=== PATIENT | male | born 1970 | race Two or more races ===

== ENCOUNTER 2018-06-10 17:33 | Emergency (ER) | payer OTHER ==
[~2018-06-10] VITALS: Ht 180.3 cm; Wt 102.1 kg
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
[2018-06-10] MEDS ORDERED: Methocarbamol 500mg tab ORAL ONE (18:15)
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
--- NOTE | 2018-06-10 18:22 | NUR ---
ED Nurse Note: patient went down for xray
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
[2018-06-10 19:02] VITALS: BP 128/82
--- NOTE | 2018-06-10 19:16 | NUR ---
HAND-OFF: Report given to Charlotte Houston RN . Patient is stable.
[2018-06-10] MEDS ORDERED: LIDOCAINE700 M1 TP (19:25)
[2018-06-10] MEDS ORDERED: ROBAXIN500 MG PO (19:25)
[2018-06-10] MEDS ORDERED: IBUPROFEN600 MG ORAL (19:25)
[2018-06-10] MEDS ORDERED: AUGMENTIN 875-1 EAC1 ORAL (19:25)
[2018-06-10 19:33] VITALS: BP 128/82
--- NOTE | 2018-06-10 19:34 | NUR ---
ER DISCHARGE NOTE: Patient is cleared to be discharged per ERMD, pt is aox4, on room air, with stable vital signs. pt was given dc and prescription instructions, pt was able to verbalize understanding, pt id band removed . pt is able to ambulate with steady gait. pt took all belongings.
--- NOTE | 2018-06-11 10:31 | Diagnostic Imaging Report ---
Indication: Neck pain. Technique: Continuous helical imaging of the cervical spine was obtained transaxially from the skull base to the upper thoracic spine. 2-D coronal and sagittal reformatted images were obtained. Automatic Exposure Control was utilized. Total Dose length Product (DLP): 2045.[address] Dose Index Volume (CTDIvol): 70.38,24.36 mGy Comparison: None Findings: There is no evidence of an acute fracture or malalignment. Atlantoaxial alignment appears normal. Height and configuration of the vertebral bodies and intervertebral discs are within normal limits. Uncovertebral joints and facets are unremarkable. There is no soft tissue swelling. Impression: Negative cervical spine CT The CT scanner at [facility] is accredited by the [employer] and the scans are performed using dose optimization techniques as appropriate to a performed exam including Automatic Exposure control.
--- NOTE | 2018-06-11 10:32 | Diagnostic Imaging Report ---
Indication: Headache Technique: Contiguous 5 mm thick transaxial imaging of the head obtained in a Siemens Sensation [address] scanner. Soft tissue and bone windows generated. Automatic Exposure Control was utilized. Total Dose length Product (DLP): 2045.[address] Dose Index Volume (CTDIvol): 70.38,24.36 mGy Comparison: none Findings: There is mild prominence of the ventricles, basal cisterns, and cerebral sulci consistent with atrophy. Mild, nonspecific, white matter hypoattenuation is noted throughout the brain consistent with chronic small vessel disease. There is no midline shift, edema, acute hemorrhage, mass effect, or abnormal extra-axial fluid collections. There is extensive opacification of the visualized paranasal sinuses. Impression: No acute intracranial bleed, mass effect or edema. Mild atrophy of the brain. Nonspecific white matter hypoattenuation probably due to chronic small vessel disease. Extensive pansinusitis The CT scanner at [facility] is accredited by the [employer] and the scans are performed using dose optimization techniques as appropriate to a performed exam including Automatic Exposure control.
== END 2018-06-10 19:33 | disposition home or self-care (01) ==
LOC: EMR 18:11
DX: S16.1XXA Strain of muscle, fascia and tendon at neck level, initial encounter (principal); J32.4 Chronic pansinusitis; V43.52XA Car driver injured in collision with other type car in traffic accident, initial encounter; Y92.410 Unspecified street and highway as the place of occurrence of the external cause; M25.561 Pain in right knee
CPT/HCPCS: 70450; 72125; 99284